=== PATIENT | female | born 1990 | race African-American/Black ===

== ENCOUNTER 2017-06-01 20:13 | Emergency (ER) | payer OTHER ==
[~2017-06-01] VITALS: Ht 175.3 cm; Wt 110.0 kg
[~2017-06-01 20:13] MED LIST: FLAG500T PO; IBUP800T23 PO; ROBA750T PO
[2017-06-01 20:15] VITALS: BP 128/79; PULSE 88; RESP 15; TEMP 98.9; O2SAT 99
[2017-06-01] MEDS ORDERED: CYCLOBENZAPRINE HCL 10 MG TAB PO ONE (23:00)
[2017-06-01] MEDS ORDERED: IBUP800T23 PO (23:00)
[2017-06-01] MEDS ORDERED: ROBA750T PO (23:00)
[2017-06-01] MEDS ORDERED: IBUPROFEN 600 MG TAB PO ONE (23:00)
--- NOTE | 2017-06-01 23:00 | PD ---
HPI Chief Complaint: Back/ Neck Pain or Injury Time Seen by Provider: 22:54 Travel History International Travel<30 days: No Contact w/Intl Traveler<30days: No Traveled to known affect area: No History of Present Illness HPI 26-year-old female patient presents to the ER today, has previous history of chronic back pains, currently complaining of several weeks' history of pain to the upper back area that feels like a 5 out of 10 burning pain. She denies any injuries, states this started on its own. She had talked her primary care physician who is new and she has not had further workup regarding this issue yet. Modifying Factors: None Associated Signs & Symptoms: Pain in the left upper back area for several weeks Risk Factors: None PFSH Past Medical History Medical History: Denies Significant Hx Diminished Hearing: No Tetanus Vaccination: Unknown ?: Unknown LMP: 04/04/2017 : 1 Para: 0 Miscarriage: 0 : 1 Dilation and Curettage (D&C): Yes Social History Alcohol Use: Yes (OCCASIONAL) Tobacco Use: No (never) Substance Use: No Allergies-Medications (Allergen,Severity, Reaction): Coded Allergies: pineapple (Unverified Allergy, Intermediate, SKIN ITCHY, 05/23/17) penicillin G (Unverified Adverse Reaction, Intermediate, YEAST INFECTION, 05/23/17) Reported Meds & Prescriptions Reported Meds & Active Scripts Active No Active Prescriptions or Reported Medications Review of Systems Except as stated in HPI: all other systems reviewed are Neg Physical Exam Narrative GENERAL: Well-developed young -Mal[place] female patient currently in no acute distress. Awake and oriented 3. SKIN: Focused skin assessment warm/dry. HEAD: Atraumatic. Normocephalic. EYES: Pupils equal and round. No scleral icterus. No injection or drainage. ENT: No nasal bleeding or discharge. Mucous membranes pink and moist. NECK: Trachea midline. No JVD. CARDIOVASCULAR: Regular rate and rhythm. No murmur appreciated. RESPIRATORY: No accessory muscle use. Clear to auscultation. Breath sounds equal bilaterally. GASTROINTESTINAL: Abdomen soft, non-tender, nondistended. Hepatic and splenic margins not palpable. BACK: No CVA tenderness. No rash. No point tenderness on palpation of the spine. There is mild tenderness to palpation of the left upper paraspinal area with no obvious deformities. MUSCULOSKELETAL: No obvious deformities. No clubbing. No cyanosis. No edema. NEUROLOGICAL: Awake and alert. No obvious cranial nerve deficits. Motor grossly within normal limits. Normal speech. PSYCHIATRIC: Appropriate mood and affect; insight and judgment normal. Data Data Last Documented VS Vital Signs Date Time Temp Pulse Resp B/P (MAP) Pulse Ox O2 Delivery O2 Flow Rate FiO2 06/01/17 20:15 98.9 88 15 128/79 (95) 99 Room Air Orders Orders Ibuprofen (Motrin) (06/01/17 23:00) Cyclobenzaprine (Flexeril) (06/01/17 23:00) [facility] Medical Decision Making Medical Screen Exam Complete: Yes Emergency Medical Condition: Yes Medical Record Reviewed: Yes Differential Diagnosis Back painmuscle spasms versus strain versus acute on chronic back pain Narrative Course Symptoms are more indicative of a muscle spasm rather than other acute processes. She has no focal neurological deficits, no fevers, no other symptoms. She does not have any track jordan and denies any recreational substances. At this point my plan would be to give her symptomatic relief or pain and have her follow with her primary care physician. Return for any worsening in symptoms as needed. The plan has been discussed with her and she states understanding. Diagnosis Primary Impression: Back pain Med/Other Pt SpecificInfo: Prescription(s) given Scripts Ibuprofen (Ibuprofen) 800 Mg Tab 800 MG PO TID Y for PAIN SCALE 1 TO 10, #21 TAB 0 Refills Prov: Fany Delgado MD 06/01/17 Methocarbamol (Robaxin) 750 Mg Tab 750 MG PO TID Y for MUSCLE SPASM, #21 TAB 0 Refills Prov: Fany Delgado MD 06/01/17 Disposition: 01 DISCHARGE HOME Condition: Stable Fany Delgado MD Jun 01, 2017 23:00
[2017-06-07] MEDS ORDERED: ESTR1.25 PO (16:42)
== END 2017-06-01 23:10 | disposition home or self-care (01) ==
LOC: NEPE 20:13
DX: M54.9 Dorsalgia, unspecified (principal)
CPT/HCPCS: 99284

== ENCOUNTER 2018-02-03 17:50 | Emergency (ER) | payer SELFPAY ==
[~2018-02-03] VITALS: Ht 172.7 cm; Wt 100.0 kg
[~2018-02-03 17:50] MED LIST changes: +ESTR1.25 PO; -FLAG500T PO; +IBUP1TAB7 PO; -IBUP800T23 PO
[2018-02-03 17:56] VITALS: BP 141/61; PULSE 93; RESP 18; TEMP 98; O2SAT 98
--- NOTE | 2018-02-03 19:23 | PD ---
HPI Chief Complaint: Laboratory Helper Problem/Complaint Time Seen by Provider: 19:20 Travel History International Travel<30 days: No Contact w/Intl Traveler<30days: No Traveled to known affect area: No History of Present Illness HPI The patient is a 27 year old female who presents to the [facility] emergency department with a history of at 4:30 PM she began to have lower abdominal pain and low back pain. It is a pressure sensation. It was coming and going like contractions. She is on her menstrual cycle currently. She realized when she went to the that she had soaked through her tampon and was bleeding onto her pad. She has a history of irregular cycles and in 2014 she began to have heavy cycles during which she passes clots. She denies having any prior history of blood transfusion. Her OB/ SEASONAL PACKAGE HANDLER is Dr. Matamoros. She has a Bicornuate uterus. She last saw her assembly machine operator in January of this year. She reports in the past she has been treated with hormones to stop the bleeding. She denies being on any hormones currently. She denies any lightheaded sensation, chest pain, or shortness of breath. She is a , with a history of prior elective . The patient denies any history of fever, cough, congestion, neck pain, vomiting, diarrhea, urinary symptoms, other vaginal discharge, or neurologic symptoms. LMP: 01/30. [facility] Past Medical History Narrative Medical The patient's past medical history is significant for irregular anovulatory menstrual cycles. Diminished Hearing: No ?: Unknown : 1 Para: 0 Miscarriage: 0 : 1 Dilation and Curettage (D&C): Yes Past Surgical History Narrative Surgical The patient's past surgical history is significant for an elective operative . Social History Alcohol Use: Yes (OCCASIONAL) Tobacco Use: No (never) Substance Use: No Allergies-Medications (Allergen,Severity, Reaction): Coded Allergies: pineapple (Unverified Allergy, Intermediate, SKIN ITCHY, 02/03/18) penicillin G (Unverified Adverse Reaction, Intermediate, YEAST INFECTION, 02/03/18) Reported Meds & Prescriptions Reported Meds & Active Scripts Active Provera (Medroxyprogesterone Acetate) 10 Mg Tab 10 Mg PO DAILY Start day 16 Review of Systems Except as stated in HPI: all other systems reviewed are Neg General / Constitutional: No: Fever Eyes: No: Visual changes HENT: No: Headaches Cardiovascular: No: Chest Pain or Discomfort Respiratory: No: Shortness of Breath Gastrointestinal: No: Abdominal Pain Genitourinary: Positive: Pelvic Pain, Vaginal Bleeding, No: Dysuria Musculoskeletal: No: Pain Skin: No Rash Neurologic: No: Weakness Psychiatric: No: Depression Endocrine: No: Polydipsia Hematologic/Lymphatic: No: Easy Bruising Physical Exam Narrative General: The patient is a well-developed well-nourished female in no acute distress. Head and Neck exam: Head is normocephalic atraumatic. Eyes: Pupils are equal round and reactive to light. Nose: Midline septum with pink mucous membranes Mouth: Dentition unremarkable. Moist mucus membranes. Posterior oropharynx is not erythematous. No tonsillar hypertrophy. Uvula midline. Airway patent. Neck: No palpable lymphadenopathy. No nuchal rigidity. No thyromegaly. Cardiovascular: Regular rate and rhythm without murmurs, gallops, or rubs. Lungs: Clear to auscultation bilaterally. No wheezes, rhonchi, or rales. Abdomen: Soft, with tenderness on palpation in the suprapubic area, no other tenderness on palpation of the other quadrants of the abdomen. Normal bowel sounds are audible. No tenderness on palpation of McBurney's point. No guarding, rebound , or rigidity. Negative Diallo sign. Extremities: No clubbing, cyanosis, or edema. 2+ pulses in all 4 extremities. No calf tenderness on palpation. Back: No costovertebral angle tenderness to palpation. Neurologic Exam: Grossly nonfocal. Skin Exam: No rash noted. Intact skin that is warm and dry. GENITOURINARY: Normal external genitalia without lesions or erythema. Vaginal vault with a moderate amount of vaginal bleeding noted. Cervical os was closed with bloody drainage. No cervical motion tenderness. Uterus nontender and nonenlarged. Bilateral adnexa nontender without masses. Data Data Last Documented VS Vital Signs Date Time Temp Pulse Resp B/P (MAP) Pulse Ox O2 Delivery O2 Flow Rate FiO2 02/04/18 01:42 02/03/18 23:08 59 16 99 Room Air 02/03/18 17:56 98.0 Orders Orders Complete Blood Count With Diff (02/03/18 19:33) Comprehensive Metabolic Panel (02/03/18 19:33) Prothrombin Time / Inr (Pt) (02/03/18 19:33) Act Partial Throm Time (Ptt) (02/03/18 19:33) Lipase (02/03/18 19:33) Urinalysis - C+S If Indicated (02/03/18 19:33) Thyroid Stimulating Hormone (02/03/18 19:33) Wet Prep Profile (02/03/18 19:33) Gc And Chlamydia Pcr (02/03/18 19:33) Iv Access Insert/Monitor (02/03/18 19:33) Ecg Monitoring (02/03/18 19:33) Oximetry (02/03/18 19:33) Ed Urine Pregnancytest Poc (02/03/18 19:33) Sodium Chlorid 0.9% 500 Ml Inj (Ns 500 M (02/03/18 19:45) Ketorolac Inj (Toradol Inj) (02/03/18 19:45) Us Pelvis Comp W Doppler (02/03/18 21:27) Labs Laboratory Tests Test 02/03/18 19:48 02/03/18 21:25 White Blood Count 11.1 TH/MM3 Red Blood Count 3.85 MIL/MM3 Hemoglobin 11.8 GM/DL Hematocrit 35.6 % Mean Corpuscular Volume 92.3 FL Mean Corpuscular Hemoglobin 30.6 PG Mean Corpuscular Hemoglobin Concent 33.1 % Red Cell Distribution Width 13.8 % Platelet Count 400 TH/MM3 Mean Platelet Volume 8.3 FL Neutrophils (%) (Auto) 65.5 % Lymphocytes (%) (Auto) 26.1 % Monocytes (%) (Auto) 5.6 % Eosinophils (%) (Auto) 2.1 % Basophils (%) (Auto) 0.7 % Neutrophils # (Auto) 7.2 TH/MM3 Lymphocytes # (Auto) 2.9 TH/MM3 Monocytes # (Auto) 0.6 TH/MM3 Eosinophils # (Auto) 0.2 TH/MM3 Basophils # (Auto) 0.1 TH/MM3 CBC Comment DIFF FINAL Differential Comment Prothrombin Time 10.7 SEC Prothromb Time International Ratio 1.1 RATIO Activated Partial Thromboplast Time 27.0 SEC Blood Urea Nitrogen 15 MG/DL Creatinine 1.08 MG/DL Random Glucose 89 MG/DL Total Protein 7.6 GM/DL Albumin 3.3 GM/DL Calcium Level 9.4 MG/DL Alkaline Phosphatase 72 U/L Aspartate Amino Transf (AST/SGOT) 13 U/L Alanine Aminotransferase (ALT/SGPT) 25 U/L Total Bilirubin 0.3 MG/DL Sodium Level 143 MEQ/L Potassium Level 3.5 MEQ/L Chloride Level 110 MEQ/L Carbon Dioxide Level 24.6 MEQ/L Anion Gap 8 MEQ/L Estimat Glomerular Filtration Rate 75 ML/MIN Lipase 68 U/L Thyroid Stimulating Hormone 3rd Gen 0.566 uIU/ML Clue Cells (Wet Prep) NONE SEEN Vaginal Trichomonas (Wet Prep) NONE SEEN Vaginal Yeast (Wet Prep) NONE SEEN Chlamydia trachomatis DNA (PCR) NOT DETECTED Neisseria gonorrhoeae DNA (PCR) NOT DETECTED MDM Medical Decision Making Medical Screen Exam Complete: Yes Emergency Medical Condition: Yes Medical Record Reviewed: Yes Interpretation(s) Last Impressions Pelvis Ultrasound 02/03/182126 Signed Impressions: Service Date/Time: Saturday, February 03, 2018 23:50 - CONCLUSION: 1. Questionable sub-centimeters cystic area in the right fundal endometrial canal. Patient refused transvaginal examination. Appearance is overtly benign on the transabdominal study and could represent a small amount of fluid. 2. Both ovaries are sonographically intact. No free fluid. Naveen Taylor MD Differential Diagnosis Dysfunctional uterine bleeding, versus ectopic , versus miscarriage, versus cervicitis, versus ovarian torsion Narrative Course During the course of the patient's emergency department visit, the patient's history, examination, and differential diagnosis were reviewed with the patient. The patient was placed on a cardiac exercise physiologist with oximetry and frequent blood pressure monitoring. The patient had IV access obtained and blood work sent for analysis. A bedside test was done and reportedly negative. The patient was initially provided normal saline a 500 mL bolus 1, Toradol 15 mg IV 1 for pain. The patient's laboratory studies were reviewed and remarkable for a white count of 11.1, hemoglobin 11.8, platelets 400 with a normal differential. CMP is remarkable for chloride of 110, creatinine 1.08, AST 13, albumin 3.3, normal lipase, TSH 0.566, PT PTT within normal limits. Wet prep is negative. GC and Chlamydia were negative. Radiology studies were reviewed and remarkable for an ultrasound that reveals a questionable subcentimeter cystic area in the right fundal endometrial canal, patient refused transvaginal examination, appearance is overtly benign on the transabdominal study and could represent a small amount of fluid, both ovaries are sonographically intact. No free fluid. The patient was instructed to follow-up with her SAILING OFFICER, Dr. Matamoros sometime in the next week. She was given a prescription for Provera at discharge. The patient is resting comfortably and feels better, is alert and in no distress. The patient's results and examination findings were discussed with the patient. The repeat examination is unremarkable and benign. The history, exam, diagnostic testing, and current condition do not suggest any significant pathology to warrant further testing, continued ED treatment, admission, or surgical evaluation at this point. The vital signs have been stable. The patient does not have uncontrollable pain, intractable vomiting, or other significant symptoms. The patient's condition is stable and appropriate for discharge. The patient will pursue further outpatient evaluation with a primary care physician or other designated or consulting physician as indicated in the discharge instructions. The patient expressed understanding and was agreeable with this plan. Diagnosis Primary Impression: Dysfunctional uterine bleeding Referrals: Maintenance Mechanic Helper 1 week Patient Instructions: Dysfunctional Uterine Bleeding (ED), General Instructions Med/Other Pt SpecificInfo: Prescription(s) given Scripts Medroxyprogesterone Acetate (Provera) 10 Mg Tab 10 MG PO DAILY for Uterine bleeding, #7 TAB 0 Refills Start day 16 Prov: Yajaira Davis MD 02/04/18 Disposition: 01 DISCHARGE HOME Condition: Stable Yajaira Davis MD Feb 03, 2018 19:23
[2018-02-03] MEDS ORDERED: KETOROLAC TROMETHAMINE 30 MG/ML (IVP) VIAL IV PUSH ONE (19:45)
[2018-02-03] MEDS ORDERED: SODIUM CHLORID 0.9% 500 ML INJ 500 ML IV ONE (19:45)
[2018-02-03 19:54] VITALS: BP 137/79; PULSE 83; RESP 18; O2SAT 98
[2018-02-03 20:12] LABS: AUTOMATED NEUTROPHIL # 7.2 TH/MM3 (1.8-7.7); BASOPHIL # 0.1 TH/MM3 (0-0.2); BASOPHIL % 0.7 % (0.0-2.0); EOSINOPHIL # 0.2 TH/MM3 (0-0.4); EOSINOPHIL % 2.1 % (0.0-4.0); HEMATOCRIT 35.6 % (35.0-46.0); HEMOGLOBIN 11.8 GM/DL (11.6-15.3); LYMPH % 26.1 % (9.0-44.0); LYMPHOCYTE # 2.9 TH/MM3 (1.0-4.8); MEAN CELL VOLUME 92.3 FL (80.0-100.0); MEAN CORPUSCULAR HEMOGLOBIN 30.6 PG (27.0-34.0); MEAN CORPUSCULAR HGB CONC 33.1 % (32.0-36.0); MEAN PLATELET VOLUME 8.3 FL (7.0-11.0); MONO % 5.6 % (0.0-8.0); MONOCYTE # 0.6 TH/MM3 (0-0.9); NEUT % 65.5 % (16.0-70.0); PLATELET COUNT 400 TH/MM3 (150-450); RED BLOOD COUNT 3.85 MIL/MM3 (4.00-5.30); RED CELL DISTRIBUTION WIDTH 13.8 % (11.6-17.2); WHITE BLOOD COUNT 11.1 TH/MM3 (4.0-11.0)
[2018-02-03 20:20] LABS: INTERNATIONAL NORMALIZED RATIO 1.1 RATIO; PROTHROMBIN TIME - PATIENT 10.7 SEC (9.8-11.6)
[2018-02-03 20:27] LABS: ALBUMIN 3.3 GM/DL (3.4-5.0); ALT (GPT) 25 U/L (10-53); AST (GOT) 13 U/L (15-37); BICARBONATE 24.6 MEQ/L (21.0-32.0); BLOOD UREA NITROGEN 15 MG/DL (7-18); CALCIUM 9.4 MG/DL (8.5-10.1); CHLORIDE 110 MEQ/L (98-107); CREATININE 1.08 MG/DL (0.50-1.00); GLOMERULAR FILTRATION RATE 75 ML/MIN (>89); GLUCOSE,RANDOM 89 MG/DL (74-106); SODIUM (NA) 143 MEQ/L (136-145)
[2018-02-03 20:38] LABS: ALKALINE PHOSPHATASE 72 U/L (45-117); TOTAL BILIRUBIN ADULT 0.3 MG/DL (0.2-1.0); TOTAL PROTEIN 7.6 GM/DL (6.4-8.2)
[2018-02-03 23:08] VITALS: BP 115/73; PULSE 59; RESP 16; O2SAT 99
--- NOTE | 2018-02-04 00:23 | RADRPT ---
EXAM DATE/TIME: 02/03/2018 23:50 [place] COMPARISON: No previous studies available for comparison. EXTERNAL COMPARISON : [facility], US TRANSVAGINAL, December 26, 2017, US PELVIS COMPLETE, January 10, 2018. INDICATIONS : Pelvic pain. MEDICAL HISTORY : Pelvic pain. History of . SURGICAL HISTORY : D&C. ENCOUNTER: Initial ACUITY: 1 day PAIN SCORE: 9/10 LOCATION: Bilateral pelvis MEASUREMENTS: UTERUS: 6.1 x 5.2 x 3.5 cm ENDOMETRIAL STRIPE: 15 mm RIGHT OVARY: 1.9 x 2.0 x 1.4 cm LEFT OVARY: 2.3 x 2.0 x 2.2 cm FINDINGS: UTERUS: The myometrium has homogeneous echotexture without mass. Small, subcentimeter cystic area in the end ometrial canal in the right side of fundus measures 7 x 6 x 8 mm RIGHT OVARY: Ovary contains no mass or significant cystic lesion. LEFT OVARY: Ovary contains no mass or significant cystic lesion. MISCELLANEOUS: No free fluid. CONCLUSION: 1. Questionable sub-centimeters cystic area in the right fundal endometrial canal. Patient refused tr ansvaginal examination. Appearance is overtly benign on the transabdominal study and could represent a small amount of fluid. 2. Both ovaries are sonographically intact. No free fluid. Naveen Taylor MD on February 04, 2018 at 0:17 Board Certified Radiologist. This report was verified electronically.
[2018-02-04] MEDS ORDERED: PROV10TA PO (01:19)
== END 2018-02-04 01:55 | disposition home or self-care (01) ==
LOC: NEPC 17:50
DX: N93.8 Other specified abnormal uterine and vaginal bleeding (principal); Z79.899 Other long term (current) drug therapy; Z88.0 Allergy status to penicillin
CPT/HCPCS: 76856; 80053; 83690; 84443; 84703; 85025; 85610; 85730; 87210; 87491; 87591; 93975; 96374; 99285; J1885; J7040